=== PATIENT | male | born 1965 | race Caucasian/White ===

== ENCOUNTER → 2018-07-06 | Outpatient (CLI) | payer OTHER ==
--- NOTE | 2018-07-06 23:14 | RAD ---
KNEE RIGHT 3V History: Worsening right knee pain Comparison: None. Findings: 3 views right knee are submitted. There is severe narrowing of the medial compartment joint space. There is mild osteoarthritic change lateral compartment and patellofemoral articulation. There is no significant joint effusion. No acute fracture or dislocation is identified. Impression: 1. There is osteoarthritic change greatest of the medial compartment at which there is severe joint space narrowing. Electronically signed by: Geovanny Garcia MD (07/06/2018 11:11 PM) [facility]
== END | disposition home or self-care (01) ==
LOC: PMG 16:45
PROVIDERS: ATTEND Registered Nurse
DX: M17.11 Unilateral primary osteoarthritis, right knee (principal)
CPT/HCPCS: 73562

== ENCOUNTER 2020-03-20 09:29 | Emergency (ER) | payer SELFPAY ==
[~2020-03-20] VITALS: Ht 182.9 cm; Wt 132.0 kg
--- NOTE | 2020-03-20 09:50 | PHYS DOC ---
Past History Past Medical History: Hypertension Additional Past Medical Histor: COVID 19 01/22 Alcohol Use: None General Adult EDM: Chief Complaint: SHORTNESS OF BREATH HPI: HPI: Patient is a 54-year-old male presents with a chief complaint of shortness of breath. Patient has had shortness of breath since August 2018 but overnight started having pleuritic severe in intensity back pain that radiates to the chest is worse with deep breath and cough. Patient had a cough and sweats. Patient had COVID-19 2 months ago. Symptoms are worse with coughing and deep breaths and better with rest. Review of Systems: Review of Systems: Constitutional: Complains of sweats Eyes: Denies change in visual acuity HENT: Denies nasal congestion or sore throat Respiratory: Complains of cough and shortness of breath Cardiovascular: Complains of chest pain GI: Denies abdominal pain, nausea, vomiting, bloody stools or diarrhea : Denies dysuria Musculoskeletal: Complains of back pain Integument: Denies rash Neurologic: Denies headache, focal weakness or sensory changes Endocrine: Denies polyuria or polydipsia Lymphatic: Denies swollen glands Psychiatric: Denies depression or anxiety Allergies: Allergies: Allergies Coded Allergies Type Severity Reaction Last Updated Verified No Known Drug Allergies 03/20/20 No Physical Exam: PE: Constitutional: Well developed, well nourished, mild distress, non-toxic appearance. [] HENT: Normocephalic, atraumatic, bilateral external ears normal, no trismus, nose normal. [] Eyes: PERRLA, EOMI, conjunctiva normal, no discharge. [] Neck: Normal range of motion, no tenderness, supple, no stridor. [] Cardiovascular:Heart rate regular rhythm, peripheral pulses are intact cap refills less than 3 seconds Lungs & Thorax: Mild tachypnea, decreased breath sounds bilaterally Abdomen: Bowel sounds normal, soft, no tenderness, no masses, no pulsatile masses. [] Skin: Warm, dry, no erythema, no rash. [] Back: No tenderness, no CVA tenderness. [] Extremities: No tenderness, no cyanosis, no clubbing, ROM intact, no edema. [] Neurologic: Alert and oriented X 3, normal motor function, normal sensory function, no focal deficits noted. [] Psychologic: Affect normal, judgement normal, mood normal. [] Current Patient Data: Labs: Laboratory Tests Test 03/20/20 09:53 White Blood Count 5.7 x10^3/uL Red Blood Count 5.10 x10^6/uL Hemoglobin 15.8 g/dL Hematocrit 46.1 % Mean Corpuscular Volume 91 fL Mean Corpuscular Hemoglobin 31 pg Mean Corpuscular Hemoglobin Concent 34 g/dL Red Cell Distribution Width 14.0 % Platelet Count 136 x10^3/uL Neutrophils (%) (Auto) 68 % Lymphocytes (%) (Auto) 19 % Monocytes (%) (Auto) 11 % Eosinophils (%) (Auto) 2 % Basophils (%) (Auto) 1 % Neutrophils # (Auto) 3.9 x10^3uL Lymphocytes # (Auto) 1.1 x10^3/uL Monocytes # (Auto) 0.6 x10^3/uL Eosinophils # (Auto) 0.1 x10^3/uL Basophils # (Auto) 0.0 x10^3/uL D-Dimer (Katerine) 0.48 mg/L Sodium Level 136 mmol/L Potassium Level 3.8 mmol/L Chloride Level 101 mmol/L Carbon Dioxide Level 22 mmol/L Anion Gap 13 Blood Urea Nitrogen 8 mg/dL Creatinine 1.1 mg/dL Estimated GFR (Cockcroft-Gault) 69.8 BUN/Creatinine Ratio 7 Glucose Level 171 mg/dL Calcium Level 9.5 mg/dL Total Bilirubin 0.6 mg/dL Aspartate Amino Transf (AST/SGOT) 102 U/L Alanine Aminotransferase (ALT/SGPT) 118 U/L Alkaline Phosphatase 160 U/L Troponin I Quantitative < 0.017 ng/mL [id number]-Type Natriuretic Peptide 13 pg/mL Total Protein 8.2 g/dL Albumin 3.6 g/dL Albumin/Globulin Ratio 0.8 Lipase 117 U/L Vital Signs: Vital Signs Date Time Temp Pulse Resp B/P (MAP) Pulse Ox O2 Delivery O2 Flow Rate FiO2 03/20/20 11:51 103 22 167/99 (121) 96 Room Air 03/20/20 09:39 98.4 EKG: EKG: [] EKG interpreted by me sinus tachycardia with a rate of 108 normal axis normal intervals S1, Q 3, T3 present, nonspecific ST changes Radiology/Procedures: Radiology/Procedures: [][address] [address] IMAGING REPORT Signed PATIENT: MARQUISE LOWRY CACCOUNT: [id number] : 1965 LOCATION: ER AGE: 54 SEX: M EXAM STATUS: REG ER ORD. PHYSICIAN: RAISA HANLEY MD REASON: COUGH, SOA, CHEST AND BACK PAIN. COVID 2 MONTHS AGO PROCEDURE: PORTABLE CHEST 1V EXAM: CHEST ONE VIEW. HISTORY: Cough, shortness of breath, back pain. COMPARISON: None. FINDINGS: A frontal view of the chest is obtained. The right hemidiaphragm is mildly elevated. There are no confluent infiltrates. There is no pneumothorax or pleural effusion. The heart is not enlarged. IMPRESSION: 1. No confluent infiltrates. Electronically signed by: Flori Jeronimo MD (03/20/2020 10:19 AM) [id number] DICTATED AND SIGNED BY: UZAIR JERONIMO MD DATE: 03/20/20 1019 CC: RAISA HANLEY MD; PCP,NO ~ Heart Score: HEART Score for Chest Pain: HEART Score for Chest Pain Response (Comments) Value History Slighlty/Non-Suspicious 0 ECG Nonspecific Repolarizatio 1 Age >45 - < 65 1 Risk Factors 1 or 2 Risk Factors 1 Troponin < Normal Limit 0 Total 3 Risk Factors: Risk Factors: DM, Current or recent (<one month) smoker, HTN, HLP, family history of CAD, obesity. Risk Scores: Score 0 - 3: 2.5% MACE over next 6 weeks - Discharge Home Score 4 - 6: 20.3% MACE over next 6 weeks - Admit for Clinical Observation Score 7 - 10: 72.7% MACE over next 6 weeks - Early Invasive Strategies Course & Med Decision Making: Course & Med Decision Making Pertinent Labs and Imaging studies reviewed. (See chart for details) [] 54-year-old male with a history of shortness of breath for 18 months and and was diagnosed with COVID-19 2 months ago presents with increased back pain that radiates to the chest and chest pain and shortness of breath overnight. Patient has a heart score of 3 symptoms are atypical for acute coronary syndrome. Doubt ACS. Patient has a negative D-dimer, doubt pulmonary embolism. Patient is mildly tachycardic and on reassessment heart rate has improved to 104. 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 Patient verbalized understanding. Patient be given Toradol for his pleurisy. Symptoms not consistent with thoracic aortic dissection and patientS cardiac silhouette is normal. Elba Disclaimer: Elba Disclaimer: This electronic medical record was generated, in whole or in part, using a voice recognition dictation system. Departure Departure: Impression: Primary Impression: Dyspnea Additional Impression: Pleurisy Disposition: 01 DC HOME SELF CARE/HOMELESS Condition: STABLE Referrals: [facility] PCP,NO (PCP) [phone] Patient Instructions: Pleurisy, Shortness of Breath Additional Instructions: EMERGENCY DEPARTMENT GENERAL DISCHARGE INSTRUCTIONS THANK YOU for coming to [facility] Emergency Department (ED) today and trusting us with your care. We trust that you had a positive experience in our Emergency Department. If you wish to speak to the department Management you can contact the emergency department at YOUR FOLLOW UP INSTRUCTIONS ARE FOLLOWS: Do you have a private doctor? If you do not have a private doctor, please ask for a resource list of physicians or clinics that may be able to assist you with follow up care. The Emergency Physician has interpreted your x-rays. The X-ray specialist will also review them. If there is a change in the findings you will be notified in 48 hours when at all possible. A lab test or lab culture may have been done, your results will be reviewed and you will be notified if you need a change in treatment. ADDITIONAL INSTRUCTIONS AND INFORMATION Your care today has been supervised by a physician who is specially trained in emergency care. Many problems require more than one evaluation for a complete diagnosis and treatment. We recommend that you schedule your follow up appointment as recommended to ensure complete treatment of your illness or injury. If you are unable to obtain follow up care and continue to have a problem, or if your condition worsens we recommend that you return to the ED. We are not able to safely determine your condition over the phone nor are we able to give sound medical advice over the phone. For these safety reasons, if you call for medical advice we will ask you to come to the ED for further evaluation If you have any questions regarding these discharge instructions please call the ED at . SAFETY INFORMATION In the interest of safety, wellness, and injury prevention; we encourage you to wear your seatbelt, if you smoke; quit smoking, and we encourage your family to use protective helmet for bicycling and other sporting events that present an increased risk for head injury. IF YOUR SYMPTOMS WORSEN OR NEW SYMPTOMS DEVELOP, OR YOU HAVE CONCERNS ABOUT YOUR CONDITION; OR IF YOUR CONDITION WORSENS WHILE YOU ARE WAITING FOR YOUR FOLLOW UP APPOINTMENT; EITHER CONTACT YOUR PRIMARY CARE DOCTOR, THE PHYSICIAN WHOSE NAME AND NUMBER YOU WERE GIVEN, OR RETURN TO THE ED IMMEDIATELY. Scripts Naproxen (NAPROSYN) 500 Mg Tablet 1 TAB PO BID PRN for PAIN, #20 TAB 0 Refills Prov: RAISA HANLEY MD 03/20/20 RAISA HANLEY MD Mar 20, 2020 09:50
--- NOTE | 2020-03-20 10:01 | EKG ---
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
--- NOTE | 2020-03-20 10:22 | RAD ---
EXAM: CHEST ONE VIEW. HISTORY: Cough, shortness of breath, back pain. COMPARISON: None. FINDINGS: A frontal view of the chest is obtained. The right hemidiaphragm is mildly elevated. There are no confluent infiltrates. There is no pneumothorax or pleural effusion. The heart is not enlarged. IMPRESSION: 1. No confluent infiltrates. Electronically signed by: Flori Jeronimo MD (03/20/2020 10:19 AM) [id number]
[2020-03-20 10:24] LABS: BASO % 1 % (0-3); EOS # 0.1 x10^3/uL (0.0-0.7); EOS % 2 % (0-3); HEMATOCRIT 46.1 % (39.0-53.0); HEMOGLOBIN 15.8 g/dL (13.0-17.5); LYMPH # 1.1 x10^3/uL (1.0-4.8); LYMPH % 19 % (24-48); MEAN CORPUSCULAR HEMOGLOBIN 31 pg (25-35); MEAN CORPUSCULAR HGB CONC 34 g/dL (31-37); MEAN CORPUSCULAR VOLUME 91 fL (79-100); MONO # 0.6 x10^3/uL (0.0-1.1); MONO % 11 % (0-9); NEUT # 3.9 x10^3uL (1.8-7.7); NEUT % 68 % (31-73); PLATELET COUNT 136 x10^3/uL (140-400); WHITE BLOOD COUNT 5.7 x10^3/uL (4.0-11.0)
[2020-03-20 10:34] LABS: CALCIUM 9.5 mg/dL (8.5-10.1); CREATININE 1.1 mg/dL (0.7-1.3); GFR 69.8; POTASSIUM 3.8 mmol/L (3.5-5.1)
[2020-03-20 10:46] LABS: ALBUMIN 3.6 g/dL (3.4-5.0); ALBUMIN/GLOBULIN RATIO 0.8 (1.0-1.7); TOTAL BILIRUBIN 0.6 mg/dL (0.2-1.0); TOTAL PROTEIN 8.2 g/dL (6.4-8.2)
[2020-03-20] MEDS ORDERED: NAPR-683 PO (12:09)
[2020-03-20 12:15] VITALS: BP 115/77
[2020-03-20] MEDS ORDERED: KETOROLAC 15 MG/ML VIAL. IVP ONE (12:15)
== END 2020-03-20 12:17 | disposition home or self-care (01) ==
LOC: ER 09:29
DX: R09.1 Pleurisy (principal); M54.89 Other dorsalgia; I10 Essential (primary) hypertension
CPT/HCPCS: 36415; 71045; 80053; 83690; 83880; 84484; 85025; 85379; 93005; 99285

== ENCOUNTER → 2020-09-05 | Outpatient (CLI) | payer OTHER ==
[~2020-09-05] MED LIST: NAPR-683 PO
--- NOTE | 2020-09-05 10:02 | RAD ---
EXAM: AP and lateral views right knee DATE: 09/05/2020 9:34 AM INDICATION: Reason: RIGHT KNEE PAIN / Spl. Instructions: / History: . COMPARISON: No Prior FINDINGS: No evidence of acute fracture or dislocation. Moderate medial compartment joint space narrowing with tricompartmental osteophytes. No knee joint effusion. IMPRESSION: No evidence of acute fracture or dislocation. Electronically signed by: Alhaji Ibarra MD (09/05/2020 9:59 AM) [id number]
== END ==
LOC: RAD 09:29
PROVIDERS: ATTEND Surgery
DX: M25.761 Osteophyte, right knee (principal)
CPT/HCPCS: 73560

== ENCOUNTER → 2020-11-22 | Outpatient (CLI) | payer MEDICAID ==
[~2020-11-22] MED LIST changes: +IOHEXOL 300 MG/ML 75 ML VIAL. IV ONE
--- NOTE | 2020-11-22 08:36 | RAD ---
EXAMINATION: US ABDOMEN COMPLETE CLINICAL HISTORY: ABNORMAL LEVELS OF OTHER SERUM ENZYMES TECHNIQUE: Grayscale sonographic imaging of the abdomen obtained with color Doppler imaging and spect ral Doppler analysis as indicated. COMPARISON: None FINDINGS: Pancreas: Poorly visualized secondary to prominent overlying bowel gas. Liver: - Echotexture: Heterogeneous - Echogenicity: Increased - Surface contour: Irregular - Lesions: None Biliary: No intrahepatic biliary duct dilation. - CBD: 4 mm. - Gallbladder: Normal caliber - Contents: No cholelithiasis - Wall: Normal - Other: No pericholecystic fluid. Spleen: - Craniocaudal length: 15.1 cm. - Lesions: None Right Kidney: - Renal length: 11.4 cm - Parenchyma: Normal parenchymal echogenicity. Normal parenchymal thickness. - Collecting system: No hydronephrosis. - Calculus: No echogenic, shadowing calculus. - Lesion: None Left Kidney: - Renal length: 12.4 cm - Parenchyma: Normal parenchymal echogenicity. Normal parenchymal thickness. - Collecting system: No hydronephrosis. - Calculus: No echogenic, shadowing calculus. - Lesion: 2.0 x 2.3 x 1.5 cm ovoid hypoechoic lesion with through transmission visualized along th e anterior aspect of the upper pole. No direct communication to the kidney is definitively visualized , however, this may represent an exophytic cyst. IVC: Imaged segments patent. Abdominal Aorta: Imaged segments patent. Ascites: None. IMPRESSION: Morphologic changes in the liver as described in splenomegaly, suggestive of hepatic cirrhosis. Corre late clinically. 2.3 cm hypoechoic lesion along the upper pole of the left kidney as described, incompletely evaluated but may represent an exophytic cyst. Renal protocol CT/MRI with intravenous contrast could be obtain ed for further evaluation as indicated. Electronically signed by: Michael Ruffin DO (11/22/2020 8:34 AM) [id number]
--- NOTE | 2020-11-22 12:36 | RAD ---
CT THORAX W contrast 11/22/2020 Indication: Reason: SHORTNESS OF BREATH Comparison: Chest radiograph 11/18/2019 Technique: After intravenous contrast administration, CT imaging was performed of the chest. MIP [place] nstructions were obtained. Exposure: One or more of the following individualized dose reduction techniques were utilized for thi s examination: 1. Automated exposure control 2. Adjustment of the mA and/or kV according to patient size 3. Use of iterative reconstruction technique. FINDINGS: Contrast bolus is adequate for evaluation of the central pulmonary artery but suboptimal fo r evaluation of the small pulmonary arteries. Pulmonary arteries: No evidence of pulmonary embolism. Thoracic aorta: No evidence of aortic aneurysm. Thyroid gland: Visualized aspect is unremarkable. Lymph nodes: No significant enlargement Heart: No significant pericadial effusion. Minimal coronary artery calcification. Esophagus: Unremarkable Pleural spaces: No significant effusion Lungs: No dominant airspace consolidation or large mass. Multiple small pulmonary nodules measuring u p to 5 mm in the superior left lower lobe and 5 mm the superior right lower lobe. Multiple small calc ified pulmonary nodules, considered benign granulomas. Trachea and central airways: Patent Bones: No destructive process. There are prominent flowing osteophytes of the thoracic spine. Upper abdomen: Slices through the upper abdomen are limited due to the technique. No obvious acute fi ndings. External Soft Tissue: No acute findings. IMPRESSION: 1. No evidence of central pulmonary embolism. No radiographic findings to suggest the cause for the p atient's shortness of breath. 2. Multiple solid sub-6 mm nodules. Fleischner Society recommendations (Radiology 2017): Multiple solid nodules <6 mm - low-risk patient: no routine follow-up required - high-risk patient: optional CT at 12 months Electronically signed by: Eliceo Crisostomo (11/22/2020 12:34 PM) [id number]
== END ==
LOC: US 07:23
PROVIDERS: ATTEND Family Medicine
DX: R91.8 Other nonspecific abnormal finding of lung field (principal); R16.1 Splenomegaly, not elsewhere classified; N28.89 Other specified disorders of kidney and ureter
CPT/HCPCS: 71260; 76700; Q9967

== ENCOUNTER → 2020-12-01 | Outpatient (CLI) | payer MEDICAID ==
--- NOTE | 2020-12-01 09:48 | RAD ---
Examination: CT of the abdomen pelvis without and with IV contrast HISTORY: History of left renal mass COMPARISON: None TECHNIQUE: Axial CT images of the abdomen pelvis without and with IV contrast. Coronal and sagittal r eformats are performed Exposure: One or more of the following individualized dose reduction techniques were utilized for thi s examination: 1. Automated exposure control 2. Adjustment of the mA and/or kV according to patient size 3. Use of iterative reconstruction technique FINDINGS: Minimal bibasilar lung atelectasis. No evidence of free air identified in the abdomen. Mild decreased attenuation within the liver likely hepatic steatosis. The spleen, adrenals grossly appears unremark able. The gallbladder is mildly distended. The stomach is mildly distended. The visualized pancreas g rossly appears unremarkable. Small bowel is nondilated. The appendix is normal. Feces and gas noted i n the colon. Urinary bladder is mildly distended. The bilateral kidneys enhance symmetrically. There is a cystic structure identified in the left kidne y measuring 2.5 cm likely cyst measuring 9 Hounsfield units. Bilateral L5 spondylolysis. Moderate deg enerative changes thoracolumbar spine. IMPRESSION: 1. 2.5 cm cystic structure identified in the left kidney likely cyst. 2. Mild hepatic steatosis. Electronically signed by: Basil Mendoza MD (12/01/2020 9:46 AM) [id number]
== END ==
LOC: CT 08:19
PROVIDERS: ATTEND Family Medicine
DX: K76.0 Fatty (change of) liver, not elsewhere classified (principal); N28.9 Disorder of kidney and ureter, unspecified; N32.89 Other specified disorders of bladder; M43.06 Spondylolysis, lumbar region; M47.815 Spondylosis without myelopathy or radiculopathy, thoracolumbar region; J98.11 Atelectasis
CPT/HCPCS: 74178; Q9967

== ENCOUNTER → 2021-03-26 | Outpatient (CLI) | payer MEDICAID ==
[~2021-03-26] MED LIST changes: -IOHEXOL 300 MG/ML 75 ML VIAL. IV ONE
--- NOTE | 2021-03-26 09:30 | RAD ---
EXAM: Bilateral knees, standing view. HISTORY: Pain. COMPARISON: 07/06/2018 FINDINGS: A standing view both knees is obtained. There is severe bilateral medial compartment joint space narrowing with subchondral sclerosis and spurring. There is mild right greater than left latera l compartment spurring. There is right greater than left genu varus. There is bilateral lateral shon rtment chondrocalcinosis. 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 Electronically signed by: Anette Hair MD (03/26/2021 9:27 AM) [id number]
== END ==
LOC: RAD 09:12
PROVIDERS: ATTEND Family Medicine
DX: M17.0 Bilateral primary osteoarthritis of knee (principal); M21.162 Varus deformity, not elsewhere classified, left knee; M21.161 Varus deformity, not elsewhere classified, right knee; M11.262 Other chondrocalcinosis, left knee; M11.261 Other chondrocalcinosis, right knee; M76.892 Other specified enthesopathies of left lower limb, excluding foot; M76.891 Other specified enthesopathies of right lower limb, excluding foot; M25.861 Other specified joint disorders, right knee; M25.862 Other specified joint disorders, left knee
CPT/HCPCS: 73565

== ENCOUNTER → 2021-07-06 | Day surgery (SDC) | payer MEDICAID ==
[~2021-07-06] MED LIST changes: +ATOR40TA59 PO; +GLYCOPYRROLATE 1 MG/5 ML VIAL. ONE; +HYDR-2145 PO; +IPRATRPIUM/ALBUTEROL 0.5/2.5MG 3 ML NEBU. NEB PRN; +IV RINGERS SOLUTION,LACTATED 1,000 ML IV SCH; +KETAMINE HCL IN NACL, ISO-OSM 50 MG/5 ML SYRINGE ONE; +LIDOCAINE 2% PF 5 ML VIAL. ONE; +LOSA50TA86 PO; +METF10007 PO; +MIDAZOLAM HCL PF 2 MG/2 ML VIAL. IV ONE; +ONDANSETRON PF 4 MG/2 ML VIAL. IV PRN; +PROAIR RESPICL90 MCG IH; +PROPOFOL 10,000 MCG/ML (20ML) VIAL IV ONE
--- NOTE | 2021-07-06 11:18 | EKG ---
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
[2021-07-06 12:24] VITALS: BP 129/95
== END | disposition home or self-care (01) ==
LOC: SURG 10:22
PROVIDERS: ATTEND Internal Medicine Gastroenterology
DX: Z12.11 Encounter for screening for malignant neoplasm of colon (principal); K64.8 Other hemorrhoids; I10 Essential (primary) hypertension; E11.9 Type 2 diabetes mellitus without complications; G47.33 Obstructive sleep apnea (adult) (pediatric); E66.9 Obesity, unspecified; J45.909 Unspecified asthma, uncomplicated; M19.90 Unspecified osteoarthritis, unspecified site; E78.00 Pure hypercholesterolemia, unspecified; Z86.010 Personal history of colon polyps
CPT/HCPCS: 45378; 82947; 93005; J2001; J2704; J3490; J7120; G0105

== ENCOUNTER → 2021-08-24 | Day surgery (SDC) | payer MEDICAID ==
[~2021-08-24] MED LIST changes: -GLYCOPYRROLATE 1 MG/5 ML VIAL. ONE
[2021-08-24 11:43] VITALS: BP 131/92
--- NOTE | 2021-08-27 17:10 | PATHOLOGY ---
[facility] Accession Number: [id number] . 01 Material submitted: . PART A: stomach - ANTRUM BIOPSY PART B: stomach - BODY OF STOMACH ULCER . 01 Clinical history: . GERD . 02 Diagnosis: A. Gastric biopsies, antrum: - Congestion and focal mild chronic inflammation. . B. Gastric biopsy, gastric body: - Superficial congestion and slight chronic inflammation. (JPM:pit; 08/27/2021) QTP 08/27/2021 1510 Local . 02 Comment: Sections of the gastric antral biopsy reveal antral/body transition mucosa showing congestion and focal mild chronic inflammation. A properly controlled immunoperoxidase for Helicobacter is negative for Helicobacter organisms. . Sections of the gastric body biopsy reveal gastric body mucosa showing superficial congestion and slight chronic inflammation. A properly controlled immunoperoxidase stain for Helicobacter is also negative for Helicobacter organisms. (JPM:pit; 08/27/2021) . Special stains performed: Immunoperoxidase stains for Helicobacter on A1 and B1. . . . 02 Electronically signed: . Graham Kay MD, Pathologist NPI- [id number] . 01 Gross description: . A. The specimen is received in formalin, labeled "Francisco Phillips, antrum bx". Received are 2, mays-pink, soft tissue fragments, measuring 0.3 and 0.4 cm, in greatest dimension. The specimen is entirely submitted cassette A1. . B. The specimen is received in formalin, labeled "Francisco Phillips, body of stomach ulcer bx". Received is a single, mays-pink, soft tissue fragment measuring 0.4 cm, in greatest dimension. The specimen is entirely submitted cassette B1. (JGG; 08/24/2021) ANTONIETA/ANTONIETA 08/24/2021 1643 Local . 02 Pathologist provided ICD-10: K29.50 . 02 CPT . 450863, 653827, N99130 Specimen Comment: A courtesy copy of this report has been sent to [phone], [phone]- Specimen Comment: [id number] Specimen Comment: Report sent to / DR HOLLIS Specimen Comment: A duplicate report has been generated due to demographic updates. Performed at: 01 [facility] [address] [facility] [address], [place] [id number] MD Davey Jeronimo MD Phone: [phone] Performed at: 02 [facility] [address] [place], [place] [id number] MD Graham Kay MD Phone: [phone]
== END | disposition home or self-care (01) ==
LOC: SURG 09:29
PROVIDERS: ATTEND Internal Medicine Gastroenterology
DX: K21.00 Gastro-esophageal reflux disease with esophagitis, without bleeding (principal); R13.10 Dysphagia, unspecified; R12 Heartburn; K25.9 Gastric ulcer, unspecified as acute or chronic, without hemorrhage or perforation; K22.70 Barrett's esophagus without dysplasia; K22.89 Other specified disease of esophagus; K29.50 Unspecified chronic gastritis without bleeding; I10 Essential (primary) hypertension; Z79.84 Long term (current) use of oral hypoglycemic drugs; E78.00 Pure hypercholesterolemia, unspecified; M19.90 Unspecified osteoarthritis, unspecified site; E66.9 Obesity, unspecified; G47.33 Obstructive sleep apnea (adult) (pediatric); E11.9 Type 2 diabetes mellitus without complications; Z79.899 Other long term (current) drug therapy; Z86.010 Personal history of colon polyps
CPT/HCPCS: 43239; 88305; 88342; J2001; J2704; J7120

== ENCOUNTER 2021-09-28 03:47 | Emergency (ER) | payer MEDICAID ==
[~2021-09-28] VITALS: Ht 182.9 cm; Wt 122.7 kg
[~2021-09-28 03:47] MED LIST changes: -IPRATRPIUM/ALBUTEROL 0.5/2.5MG 3 ML NEBU. NEB PRN; -IV RINGERS SOLUTION,LACTATED 1,000 ML IV SCH; -KETAMINE HCL IN NACL, ISO-OSM 50 MG/5 ML SYRINGE ONE; -LIDOCAINE 2% PF 5 ML VIAL. ONE; -MIDAZOLAM HCL PF 2 MG/2 ML VIAL. IV ONE; -ONDANSETRON PF 4 MG/2 ML VIAL. IV PRN; -PROPOFOL 10,000 MCG/ML (20ML) VIAL IV ONE
--- NOTE | 2021-09-28 04:19 | PHYS DOC ---
Past History Past Medical History: Diabetes, High Cholesterol, Hypertension Additional Past Medical Histor: COVID 19 01/22 Past Medical History gastric ullcers, liver dz Past Surgical History: Angioplasty, Other Additional Past Surgical Histo: KNEE SURGERY Alcohol Use: None Drug Use: None General Adult HPI: HPI: ". I was having some pain tonight .. so I called ask a nurse... and she talked to me just about 10 min.. and said I needed to got to the hospital..." Patient is a 56 year old male who presents with history of lower chest and upper stomach pain. Pain is on both sides of lower chest and stomach. Patient also had some and his left shoulder. Patient did admit to dietary indiscretions with chicken wings and sherbet. patient has been a diabetic and had elevated cholesterol. Last year he went on a very restricted diet and an exercise program. Patient does have a history of diabetes, hypertension, elevated cholesterol, sleep apnea treated with CPAP and gastric ulcers. Patient normally follows with Dr. Winston for primary. Patient has seen Dr. Ijeoma CHRISTY,. Did have coloscopic and EGD where they found small nonbleeding ulcers. Pt.sees a doctor Rozina at [facility] for his liver disease, and sees for his heart. Patient states approximately year ago he had a cath and angioplasty. Galeana s had follow-up with Dr. Beck since that time and he felt he was doing well. Patient denies any trauma. Patient denies any recent travel. Patient denies any specific ill contacts. Patient denies any fever or chills recently. Patient denies any history of immunosuppression. Patient does take in an anti- acid drug. Patient advised that he was on an SUZY inhibitor but that caused a cough and has now been switched to a ARB and a diuretic.. Patient did get Pfizer vaccine x3. Patient not had flu vaccination this season. Patient does relate he had COVID infection and 2019. Patient states his symptoms today have been consistent with GERD. Review of Systems: Review of Systems: Constitutional: Denies fever or chills Eyes: Denies change in visual acuity HENT: Denies nasal congestion or sore throat Respiratory: Complains of some chest wall pain Cardiovascular: Complains of epigastric chest pain GI: Complains of upper gastric abdominal pain, nausea. Denies, vomiting, bloody stools or diarrhea : Denies dysuria Musculoskeletal: Denies back pain or joint pain Integument: Denies rash Neurologic: Denies headache, focal weakness or sensory changes Endocrine: Denies polyuria or polydipsia Lymphatic: Denies swollen glands Psychiatric: Denies depression or anxiety Family History: Family History: Noncontributory the presentation Current Medications: Current Meds: See nursing for home meds Allergies: Allergies: Allergies Coded Allergies Type Severity Reaction Last Updated Verified No Known Drug Allergies 08/24/21 No Physical Exam: PE: Constitutional: Moderate acute distress, non-toxic appearance. [] HENT: Normocephalic, atraumatic, bilateral external ears normal, oropharynx moist, no oral exudates, nose normal. [] Eyes: PERRLA, EOMI, conjunctiva normal, no discharge. [] Neck: Normal range of motion, no tenderness, supple, no stridor. More than 17 inches circumference Cardiovascular:Heart rate regular rhythm, no murmur [] Lungs & Thorax: Bilateral breath sounds equal at apex auscultation [] Abdomen: Bowel sounds hyperactive, soft, upper abdomen tenderness, no masses, no pulsatile masses. Distended. Tympanic. Skin: Warm, dry, no erythema, no rash. [] Back: No tenderness, no CVA tenderness. [] Extremities: No tenderness, no cyanosis, no clubbing, ROM intact, no edema. No cording appreciated Neurologic: Alert and oriented X 3, normal motor function, normal sensory function, no focal deficits noted. [] Psychologic: Affect anxious, judgement normal, mood normal. [] EKG: EKG: My interpretation EKG shows a sinus rhythm at 88 bpm no findings of acute STEMI with contralateral changes. Time of EKG is 349 hours [] Radiology/Procedures: Radiology/Procedures: [][address] [address] IMAGING REPORT Signed PATIENT: MARQUISE LOWRY CACCOUNT: [id number] : 1965 LOCATION: ER AGE: 56 SEX: M EXAM STATUS: REG ER ORD. PHYSICIAN: JACQUE CLINTON MD REASON: cp PROCEDURE: PORTABLE CHEST 1V XR CHEST 1V Clinical History: Reason: cp / Spl. Instructions: / History: Technique: AP view of the chest was obtained at 09/28/2021 5:54 AM. Comparison: March 20, 2020. Findings: The cardiomediastinal silhouette is normal. The pulmonary vasculature is normal. The lungs and pleural margins are clear. Impression: No evidence of an acute cardiopulmonary process. Electronically signed by: Colette Malone III, MD (09/28/2021 6:58 AM) [facility] DICTATED AND SIGNED BY: COLETTE MALONE III, MD DATE: 09/28/21 0657 CC: LEW WINSTON MD; JACQUE CLINTON MD ~ Heart Score: C/O Chest Pain: Yes HEART Score for Chest Pain: HEART Score for Chest Pain Response (Comments) Value History Slighlty/Non-Suspicious 0 ECG Nonspecific Repolarizatio 1 Age >45 - < 65 1 Risk Factors 1 or 2 Risk Factors 1 Troponin < Normal Limit 0 Total 3 Risk Factors: Risk Factors: DM, Current or recent (<one month) smoker, HTN, HLP, family histo ry of CAD, obesity. Risk Scores: Score 0 - 3: 2.5% MACE over next 6 weeks - Discharge Home Score 4 - 6: 20.3% MACE over next 6 weeks - Admit for Clinical Observation Score 7 - 10: 72.7% MACE over next 6 weeks - Early Invasive Strategies Course & Med Decision Making: Course & Med Decision Making Pertinent Labs and Imaging studies reviewed. (See chart for details) Patient to follow-up with Dr. Winston. Patient follow-up with Dr. Beck. Patient take meds previous directed. Patient continue his efforts at weight loss. Patient take a daily 1/2 aspirin with food until follow-up with primary care. Consider earlier follow-up with cardiology. Patient does have a scheduled follow-up and cardiac echo and February or March. Return if any concerns. Impression: 1. Chest Pain- atypical 2. Hypertension 3. Hx. Gastric Ulcers 4. DM- glucose 185 5. Hypertension 6. History of sleep apnea 7. History of liver disease-chronically elevated AST,45, ALT 77 and alk phos 122. 8. Thrombocytopenia 137 [] Dragbarb Disclaimer: Dragbarb Disclaimer: This electronic medical record was generated, in whole or in part, using a voice recognition dictation system. Departure Departure: Referrals: LEW WINSTON MD (PCP) [place] Disclaimer This chart was dictated in whole or in part using Voice Recognition software in a busy, high-work load, and often noisy Emergency Department environment. It may contain unintended and wholly unrecognized errors or omissions. JACQUE CLINTON MD September 28, 2021 04:19
[2021-09-28 05:58] LABS: BASO % 0 % (0-3); EOS # 0.2 x10^3/uL (0.0-0.7); EOS % 3 % (0-3); HEMOGLOBIN 14.5 g/dL (13.0-17.5); LYMPH # 1.2 x10^3/uL (1.0-4.8); LYMPH % 20 % (24-48); MEAN CORPUSCULAR HEMOGLOBIN 30 pg (25-35); MEAN CORPUSCULAR HGB CONC 34 g/dL (31-37); MEAN CORPUSCULAR VOLUME 88 fL (79-100); MONO # 0.6 x10^3/uL (0.0-1.1); MONO % 10 % (0-9); NEUT # 3.8 x10^3uL (1.8-7.7); NEUT % 66 % (31-73); PLATELET COUNT 137 x10^3/uL (140-400); WHITE BLOOD COUNT 5.7 x10^3/uL (4.0-11.0)
[2021-09-28] MEDS ORDERED: IV RINGERS SOLUTION,LACTATED 1,000 ML IV SCH (06:00)
[2021-09-28 06:04] LABS: CALCIUM 9.1 mg/dL (8.5-10.1); CREATININE 1.1 mg/dL (0.7-1.3); GFR 69.2; POTASSIUM 3.8 mmol/L (3.5-5.1)
[2021-09-28 06:15] LABS: ALBUMIN 3.8 g/dL (3.4-5.0); DIRECT BILIRUBIN 0.1 mg/dL (0.0-0.2); TOTAL BILIRUBIN 0.5 mg/dL (0.2-1.0); TOTAL PROTEIN 7.4 g/dL (6.4-8.2)
--- NOTE | 2021-09-28 07:00 | RAD ---
XR CHEST 1V Clinical History: Reason: cp / Spl. Instructions: / History: Technique: AP view of the chest was obtained at 09/28/2021 5:54 AM. Comparison: March 20, 2020. Findings: The cardiomediastinal silhouette is normal. The pulmonary vasculature is normal. The lungs and pleura l margins are clear. Impression: No evidence of an acute cardiopulmonary process. Electronically signed by: Barrett Montalvo III, MD (09/28/2021 6:58 AM) [facility]
[2021-09-28 07:02] VITALS: BP 141/86
[2021-09-28 07:35] LABS: INFLUENZA A PATIENT NEGATIVE (NEGATIVE); INFLUENZA B PATIENT NEGATIVE (NEGATIVE)
[2021-09-28 20:09] LABS: CHOLESTEROL/HDL RATIO 3.5; THYROID STIM HORMONE (TSH) 2.56 uIU/mL (0.358-3.740)
== END 2021-09-28 07:00 | disposition home or self-care (01) ==
LOC: ER 03:47
DX: I10 Essential (primary) hypertension (principal); R07.89 Other chest pain; E11.9 Type 2 diabetes mellitus without complications; G47.30 Sleep apnea, unspecified; D69.6 Thrombocytopenia, unspecified; E78.00 Pure hypercholesterolemia, unspecified; Z20.822 Contact with and (suspected) exposure to COVID-19; Z87.11 Personal history of peptic ulcer disease
CPT/HCPCS: 36415; 71045; 80048; 80061; 80076; 82550; 83690; 83735; 83880; 84443; 84484; 85025; 85379; 85610; 85730; 86705; 86709; 86803; 87340; 87428; 93005; 96360; 99285; J7120